=== PATIENT | male | born 1965 | race African-American/Black ===

== ENCOUNTER 2024-01-24 10:43 | Outpatient (AMB) | payer OTHER, SELFPAY ==
[2024-01-24 11:08] VITALS: BP 132/96; PULSE 106; TEMP 36.8; O2SAT 98; BMI 29.6
--- NOTE | 2024-01-24 11:08 | AM.OFFWIN_ITS ---
Intake Vital Signs 01/24/24 11:08 Height 5 ft 2 in Weight 162 lb BMI 29.6 BP 132/96 H Blood Pressure Location Lt brachial Position Sitting Pulse 106 H Pulse Source Pulse Oximeter Temp 98.3 F Temp Source Oral Pulse Oximetry (%) 98 Oxygen Delivery Method Room Air Intake Visit Reasons: [employer] X-ray ok per Marito Intake Note: pt here for chest xray Patient Tobacco Use Status: Never used Tobacco Allergies No Known Allergies Allergy (Verified 01/24/24 11:31) Do you need a note to return to daycare/school/sports/work: No HPI HPI Comments History of Present Illness Details 58 y/o male patient who presents to the walk in for Chest Xray. Pt needs Screening for TB for new employment. He had Positive TB testing in the past. He is asymptomatic. FOR[facility]LY [facility], [facility] Social History Patient Tobacco Use Status: Never used Tobacco Review of Systems Const All systems reviewed & are unremarkable except as noted in HPI and below Physical Exam Vital Signs: Last Vital Signs Temp 98.3 F 01/24/24 11:08 Pulse 106 H 01/24/24 11:08 BP 132/96 H 01/24/24 11:08 Pulse Ox 98 01/24/24 11:08 Oxygen Delivery Method Room Air 01/24/24 11:08 BMI result Body Mass Index 29.6 Const General: cooperative, comfortable and no acute distress Orientation/consciousness: patient oriented x3 Resp Effort & Inspection: normal respiratory effort and able to speak in complete sentences Auscultation: clear to auscultation bilaterally, no crackles, no rales, no rhonchi and no wheezes Cardio Heart sounds: S1 normal heart sound present and S2 normal heart sound present Neuro General: patient oriented x3, gait normal and moves all extremities Psych Speech and movement: Normal speech and movement present Assessment & Plan Assessment & Plan (1) Screening-pulmonary TB: Code(s): Z11.1 - Encounter for screening for respiratory tuberculosis Plan: Ordered Chest Xray Will call Patient with results. Orders: Orders XR chest 2V Today Z11.1 - Encounter for screening for respiratory tuberculosis Coding Level of Care Code New Pt Level 3 (82312) Diagnoses Screening-pulmonary TB Z11.1 Time Spent (min) 15
== END 2024-01-24 11:39 | disposition home or self-care (01) ==
PROVIDERS: PCP Internal Medicine; Visit Provider Nurse Practitioner Family
DX: Z11.1 Encounter for screening for respiratory tuberculosis (principal)
CPT/HCPCS: 99203

== ENCOUNTER 2024-01-24 11:15 | Outpatient (REF) | payer OTHER, SELFPAY ==
--- NOTE | ~2024-01-24 | XR_ITS ---
EXAMINATION: XR CHEST CLINICAL INFORMATION: History of positive test for TB, evaluate respiratory tuberculosis COMPARISON: None available. TECHNIQUE: 2 views of the chest were obtained. FINDINGS: HEART & VASCULARITY: There are normal cardiac size and pulmonary vascularity. LUNGS: Lungs are clear. No pneumothorax is seen. BONES: Bony skeleton is intact. XR/XR chest 2V IMPRESSION: Normal chest x-ray. No diagnostic radiographic signs for pulmonary tuberculosis. Electronically signed by: Praveen Barrios MD 01/24/2024 02:13 PM EDT
== END 2024-01-24 11:16 | disposition home or self-care (01) ==
LOC: HO.HMGCX 11:15
PROVIDERS: Visit Provider Nurse Practitioner Family
DX: Z11.1 Encounter for screening for respiratory tuberculosis (principal)
CPT/HCPCS: 71046